=== PATIENT | male | born 1955 | race Caucasian/White ===

== ENCOUNTER 2017-07-19 06:41 | Observation (INO) | payer OTHER ==
[~2017-07-19] VITALS: Ht 186.7 cm; Wt 131.1 kg
[~2017-07-19 06:41] MED LIST: ABILIFY10 MG PO; ABILIFY20 MG PO; ALPRAZOLAM0.25 MG PO; AMARYL1 MG PO; AMARYL2 MG PO; AMLODIPINE BESYL5 MG PO; ASCORBIC ACID500 M1; ASPIR 8181 M1 PO; ASPIR-TRIN325 M1 PO; ATIVAN0.25 MG PO; Aspirin Ec PO; B COMPLEX #11 EACH PO; BENZTROPINE ME0.5 MG PO; BENZTROPINE MESY1 MG PO; CALCIUM 600 +1 EA12 PO; CALCIUM 600 +1 EA13 PO; CALTRATE 6001 TABLE1 PO; CARDIZEM CD240 MG PO; CLEOCIN300 MG PO; CLINDAMYCIN HC150 MG PO; COATED ASPIRIN325 MG PO; COGENTIN0.5 MG PO; CYANOCOBALAM1000 MCG PO; DAILY VITE1 EAC1 PO; DEPAKOTE ER500 MG PO; DEPAKOTE500 MG PO; DESYREL100 MG; DESYREL100 MG PO; DIGOX250 MCG PO; DIGOXIN250 MCG PO; DILTIAZEM PO; DIVALPROEX SOD500 MG PO; ESKALITH300 M1 PO; FLAGYL500 MG PO; GLIMEPIRIDE2 MG; GLIMEPIRIDE2 MG PO; GLYBURIDE5 MG PO; HALDOL1 MG PO; HALDOL5 MG PO; IBUPROFEN600 MG PO; KlonoPIN PO; LANOXIN,DIGIT0.25 MG PO; LEVAQUIN750 MG PO; LEVEMIR FL100 UNIT/1 SC; LEVEMIR100 UNIT/2 SC; LIPITOR10 MG PO; LISINOPRIL2.5 MG PO; LISINOPRIL40 MG PO; LISINOPRIL5 MG PO; LITHIUM CARBON300 M1 PO; LOPRESSOR25 MG PO; Lopressor PO; METFORMIN HCL500 MG PO; METOPROLOL TART25 MG PO; METOPROLOL TART50 MG PO; MULTIVITAMIN1 EAC2 PO; NAPROSYN500 MG PO; NOVOLOG 10100 UNITS/ SC; NOVOLOG PE100 UNITS/ SC; NOVOLOG100 UNIT/1 SC; OMEGA-31000 M1 PO; PREDNISONE20 MG PO; PROTONIX40 MG PO; Percocet 5/325,Endoc PO; REGLAN10 MG PO; RISPERDAL25 MG/2 ML IM; RISPERIDONE2 MG PO; SUPER B COM1 CAPSULE PO; SUPER B COMPLE1 EAC2 PO; SUPER B COMPLE1 EACH PO; SUPER B MAXI C0.4 MG PO; SUPER B-50 COM1 EACH PO; THERAGRAN1 TABLET PO; THIAMINE,VITAM100 MG PO; TRADJENTA5 MG PO; TRAZODONE HCL100 MG PO; Tylenol Regular Stre PO; VALIUM5 MG PO; VICODIN,LORT1 TABLET PO; VITAMIN B12-FO1 EACH; XARELTO PO; XARELTO10 MG PO; XARELTO20 MG PO; Xarelto PO; ZESTRIL20 MG PO; ZESTRIL40 MG PO; Zestril,Prinivil PO; predniSONE PO
[2017-07-19 08:18] LABS: POINT-OF-CARE METER ID UU14107333
[2017-07-19 09:50] LABS: POINT-OF-CARE METER ID UU14174212
[2017-07-19 11:06] LABS: EOSINOPHIL (%) 0.1 % (0-5); HEMATOCRIT 38.6 % (38.0-50.0); IMMATURE GRANULOCYTE (%) 0.9 % (0.0-0.7); IMMATURE GRANULOCYTE COUNT 0.1 K/uL; INSTRUMENT ABS NEUTROPHIL CT 5.8 K/uL; LYMPHOCYTE COUNT 0.8 K/uL (1.0-2.8); MCH 32.1 PG (29.0-34.0); MCV 91.7 FL (86-99); MEAN PLAT.VOLUME 10.5 uM^3 (9.0-12.4); MONOCYTE (%) 9.6 % (3-12); MONOCYTE COUNT 0.7 K/uL (0-0.8); NEUTROPHIL (%) 78.6 % (45-76); NEUTROPHIL COUNT 5.8 K/uL (1.8-6.4); PLATELET COUNT 129 K/uL (156-360); RED BLOOD COUNT 4.21 M/uL (4.00-5.50); WHITE BLOOD COUNT 7.4 K/uL (4.1-10.2)
[2017-07-19 11:17] LABS: CHLORIDE 97 mEq/L (99-109); POTASSIUM 3.9 mEq/L (3.7-5.4); SODIUM 139 mEq/L (136-147)
[2017-07-19 11:20] LABS: GLUCOSE 213 mg/dL (70-99)
[2017-07-19 11:21] LABS: ANION GAP 22 MEQ/L (2-14); TOTAL BILIRUBIN 1.3 mg/dL (0.0-1.0)
[2017-07-19 11:23] LABS: ALKALINE PHOSPHATASE 78 IU/L (3-129); GFR ESTIMATE (CALCULATED) > 59 mL/min/
[2017-07-19 11:24] LABS: INTER. NORMALIZED RATIO 1.2; PTT 27.8 SEC (25-37); UREA NITROGEN (BUN) 12 mg/dL (9-23)
[2017-07-19 11:25] LABS: DIRECT BILIRUBIN 0.6 mg/dL (0.0-0.3)
[2017-07-19 11:27] LABS: LIPASE 43 U/L (1.0-51.0); TROP-I INTERPRETATION NEGATIVE; TROPONIN-I 0.01 ng/mL (0.0-0.30)
[2017-07-19 15:04] LABS: ADD MIUA? YES; BILIRUBIN NEGATIVE; BLOOD NEGATIVE; COLOR AMBER ((YELLOW)); GLUCOSE (STRIP) >=500; KETONES 20; LEUKOCYTES NEGATIVE; NITRITE NEGATIVE; PROTEIN (STRIP) 30; SPECIFIC GRAVITY 1.021 (1.000-1.030); UROBILINOGEN 0.2 MG/DL (0.2-1.0)
[2017-07-19 15:10] LABS: BACTERIA NONE SEEN /HPF; EPITHELIAL CELLS RARE /HPF; MUCUS TRACE /LPF; RED BLOOD CELLS 0-5 /HPF (0-5); UCUL ADDED? YES
[2017-07-19 15:12] LABS: SERUM ETHYL ALCOHOL 12 mg/dL
[2017-07-19] MEDS ORDERED: LO-DOSE ASPIRIN81 M2 PO (16:18)
[2017-07-19 18:16] LABS: TROP-I INTERPRETATION NEGATIVE; TROPONIN-I 0.01 ng/mL (0.0-0.30)
[2017-07-19 18:17] VITALS: BP 129/70
[2017-07-19 19:50] VITALS: BP 122/72
[2017-07-20] VITALS (7 sets, daily range): BP systolic 82–139; BP diastolic 26–73
[2017-07-20 00:23] LABS: C DIFF TOXIN NEGATIVE (NEGATIVE)
[2017-07-20 00:24] LABS: PROBE CHECK PASS; SPECIMEN PROCESSING CONTROL PASS
[2017-07-20 01:16] LABS: TROP-I INTERPRETATION NEGATIVE; TROPONIN-I 0.01 ng/mL (0.0-0.30)
[2017-07-20 07:51] LABS: POINT-OF-CARE METER ID UU14188625
[2017-07-20 10:31] LABS: ANION GAP 9 MEQ/L (2-14); CHLORIDE 102 MEQ/L (99-109); MAGNESIUM 1.6 mg/dl (1.3-2.7); POTASSIUM 3.6 MEQ/L (3.7-5.4); SAMPLE HEMOLYSIS CHECK 0; SAMPLE ICTERIC CHECK 0; SAMPLE LIPEMIA CHECK 0; SODIUM 139 MEQ/L (136-147)
[2017-07-20 10:36] LABS: GFR ESTIMATE (CALCULATED) > 59 mL/min/; GLUCOSE 136 mg/dL (70-99)
[2017-07-20 10:46] LABS: UREA NITROGEN (BUN) 22 mg/dL (9-23)
[2017-07-21 03:43] VITALS: BP 109/64
[2017-07-21 07:32] LABS: ANION GAP 8 MEQ/L (2-14); CHLORIDE 102 MEQ/L (99-109); GFR ESTIMATE (CALCULATED) > 59 mL/min/; POTASSIUM 4.1 MEQ/L (3.7-5.4); SAMPLE HEMOLYSIS CHECK 0; SAMPLE ICTERIC CHECK 0; SAMPLE LIPEMIA CHECK 0; SODIUM 137 MEQ/L (136-147); UREA NITROGEN (BUN) 21 mg/dL (9-23)
[2017-07-21 07:33] VITALS: BP 110/74
[2017-07-21 07:33] LABS: GLUCOSE 77 mg/dL (70-99)
[2017-07-21 11:45] VITALS: BP 132/75
[2017-07-21 12:12] LABS: POINT-OF-CARE METER ID UU14188625
== END 2017-07-21 15:09 | disposition home or self-care (01) ==
LOC: EME 06:41 → AMB 06:41 → EDSTATUS 08:00 → 5SOUTH 15:46 → EDOF 15:46 → ENRESERV 15:48 → 5SOUTH 17:55
PROVIDERS: Emergency Medicine; Internal Medicine; Nurse Practitioner Adult Health
DX: F10.239 Alcohol dependence with withdrawal, unspecified (principal); E87.6 Hypokalemia; I48.0 Paroxysmal atrial fibrillation; E86.0 Dehydration; Z79.01 Long term (current) use of anticoagulants; E11.9 Type 2 diabetes mellitus without complications; I10 Essential (primary) hypertension; E78.5 Hyperlipidemia, unspecified; E83.42 Hypomagnesemia; I25.10 Atherosclerotic heart disease of native coronary artery without angina pectoris; F31.9 Bipolar disorder, unspecified; Z79.4 Long term (current) use of insulin; R19.7 Diarrhea, unspecified; K76.0 Fatty (change of) liver, not elsewhere classified; Z90.49 Acquired absence of other specified parts of digestive tract; Z79.82 Long term (current) use of aspirin; Z83.3 Family history of diabetes mellitus
CPT/HCPCS: 74176; 80048; 80076; 81003; 82948; 83690; 83735; 83880; 84100; 84443; 84484; 85025; 85610; 85730; 87086; 87493; 87506; 93005; 93306; 99281; 99285; G0378; G0480; J1200; J1815; J2060; J2405; J2765; J3475; J7030; J7120

== ENCOUNTER 2017-07-27 14:02 | Observation (INO) | payer OTHER ==
[~2017-07-27] VITALS: Ht 185.4 cm; Wt 135.5 kg
[~2017-07-27 14:02] MED LIST changes: +LO-DOSE ASPIRIN81 M2 PO
[2017-07-27 14:35] LABS: INTER. NORMALIZED RATIO 1.1; PROTHROMBIN TIME 11.8 SEC (10.2-12.9)
[2017-07-27 14:37] LABS: PTT 28.1 SEC (25-37)
[2017-07-27 14:38] LABS: CHLORIDE 99 mEq/L (99-109); POTASSIUM 3.9 mEq/L (3.7-5.4); SODIUM 141 mEq/L (136-147)
[2017-07-27 14:39] LABS: GLUCOSE 234 mg/dL (70-99)
[2017-07-27 14:41] LABS: ANION GAP 22 MEQ/L (2-14)
[2017-07-27 14:43] LABS: GFR ESTIMATE (CALCULATED) > 59 mL/min/
[2017-07-27 14:44] LABS: UREA NITROGEN (BUN) 12 mg/dL (9-23)
[2017-07-27 14:50] LABS: TROP-I INTERPRETATION NEGATIVE; TROPONIN-I 0.02 ng/mL (0.0-0.30)
[2017-07-27 14:54] LABS: BASOPHIL COUNT 0.1 K/uL (0-0.1); EOSINOPHIL (%) 3.2 % (0-5); EOSINOPHIL COUNT 0.2 K/uL (0-0.3); HEMATOCRIT 39.7 % (38.0-50.0); IMMATURE GRANULOCYTE (%) 1.3 % (0.0-0.7); IMMATURE GRANULOCYTE COUNT 0.1 K/uL; INSTRUMENT ABS NEUTROPHIL CT 2.1 K/uL; LYMPHOCYTE COUNT 1.6 K/uL (1.0-2.8); MCH 32.5 PG (29.0-34.0); MCHC 34.5 G/DL (30.0-36.0); MCV 94.1 FL (86-99); MEAN PLAT.VOLUME 10.3 uM^3 (9.0-12.4); MONOCYTE (%) 14.4 % (3-12); MONOCYTE COUNT 0.7 K/uL (0-0.8); NEUTROPHIL (%) 45.3 % (45-76); NEUTROPHIL COUNT 2.1 K/uL (1.8-6.4); PLATELET COUNT 178 K/uL (156-360); RBC DIS.WIDTH-CV 13.2 % (11.8-14.6); RBC DIS.WIDTH-SD 45.6 % (39-53); RED BLOOD COUNT 4.22 M/uL (4.00-5.50); WHITE BLOOD COUNT 4.7 K/uL (4.1-10.2)
[2017-07-27] MEDS ORDERED: NOVOLOG 10100 UNITS/ SC ×3 (16:26→16:27)
[2017-07-27] MEDS ORDERED: LEVEMIR100 UNIT/2 SC (16:28)
[2017-07-27 17:33] LABS: MAGNESIUM 1.2 mg/dL (1.3-2.7)
[2017-07-27 18:07] VITALS: BP 156/88
[2017-07-27 20:50] VITALS: BP 131/82
[2017-07-27 22:06] LABS: TROP-I INTERPRETATION NEGATIVE; TROPONIN-I 0.02 ng/mL (0.0-0.30)
[2017-07-27 23:35] VITALS: BP 122/66
[2017-07-28 04:15] VITALS: BP 143/86
[2017-07-28 05:17] LABS: HEMATOCRIT 37.3 % (38.0-50.0); MCH 33.6 PG (29.0-34.0); MCHC 35.1 G/DL (30.0-36.0); MCV 95.6 FL (86-99); MEAN PLAT.VOLUME 10.2 uM^3 (9.0-12.4); PLATELET COUNT 152 K/uL (156-360); RBC DIS.WIDTH-CV 13.3 % (11.8-14.6); RBC DIS.WIDTH-SD 46.9 % (39-53); WHITE BLOOD COUNT 5.3 K/uL (4.1-10.2)
[2017-07-28 05:37] LABS: ALKALINE PHOSPHATASE 60 IU/L (3-129); ANION GAP 11 MEQ/L (2-14); CHLORIDE 101 MEQ/L (99-109); GFR ESTIMATE (CALCULATED) > 59 mL/min/; GLUCOSE 132 mg/dL (70-99); MAGNESIUM 1.8 mg/dl (1.3-2.7); POTASSIUM 4.1 MEQ/L (3.7-5.4); SAMPLE HEMOLYSIS CHECK 0; SAMPLE ICTERIC CHECK 0; SAMPLE LIPEMIA CHECK 0; SODIUM 141 MEQ/L (136-147); TOTAL BILIRUBIN 1.2 MG/DL (0.0-1.0); UREA NITROGEN (BUN) 11 mg/dL (9-23)
[2017-07-28 05:42] LABS: TROP-I INTERPRETATION NEGATIVE; TROPONIN-I 0.03 ng/mL (0.0-0.30)
[2017-07-28 08:33] VITALS: BP 144/78
[2017-07-28 11:36] VITALS: BP 125/85; BP 130/84; BP 135/91
[2017-07-28 12:02] VITALS: BP 130/84
[2017-07-28 16:15] VITALS: BP 133/87
[2017-07-28 20:00] VITALS: BP 116/81
[2017-07-29 00:12] VITALS: BP 104/59
[2017-07-29 03:58] VITALS: BP 99/57
[2017-07-29 07:43] LABS: POINT-OF-CARE METER ID UU13113781
[2017-07-29 07:45] VITALS: BP 128/58
[2017-07-29] MEDS ORDERED: DILTIAZEM 24HR180 MG PO (09:22)
[2017-07-29] MEDS ORDERED: MAG-OXIDE400 MG PO (09:22)
[2017-07-29] MEDS ORDERED: LOPRESSOR50 MG PO (09:22)
[2017-07-29 11:16] LABS: POINT-OF-CARE METER ID UU13113781
[2017-07-29 13:03] VITALS: BP 111/77
== END 2017-07-29 13:01 | disposition home or self-care (01) ==
LOC: EME 14:02 → EDOF 16:03 → 4EAST 16:03 → EDOF 16:03 → ENRESERV 16:05 → 4EAST 17:27 → ENPENDDIS 07-29 → 4EAST 07-29 13:01
PROVIDERS: Emergency Medicine; Hospitalist
DX: I48.0 Paroxysmal atrial fibrillation (principal); R10.31 Right lower quadrant pain; R19.7 Diarrhea, unspecified; E83.42 Hypomagnesemia; R07.9 Chest pain, unspecified; I10 Essential (primary) hypertension; E11.65 Type 2 diabetes mellitus with hyperglycemia; F31.9 Bipolar disorder, unspecified; E78.5 Hyperlipidemia, unspecified; F10.10 Alcohol abuse, uncomplicated; I25.10 Atherosclerotic heart disease of native coronary artery without angina pectoris; R42 Dizziness and giddiness; Z79.01 Long term (current) use of anticoagulants; Z79.82 Long term (current) use of aspirin; Z79.4 Long term (current) use of insulin; E66.9 Obesity, unspecified; Z68.39 Body mass index [BMI] 39.0-39.9, adult; Z90.49 Acquired absence of other specified parts of digestive tract
CPT/HCPCS: 71010; 74177; 80048; 80053; 82948; 83735; 84484; 85025; 85027; 85610; 85730; 93005; 99281; 99285; G0378; J1160; J1815; J3411; J3475; J7030; J7050

== ENCOUNTER → 2017-11-19 | Outpatient (CLI) | payer OTHER ==
[~2017-11-19] VITALS: Ht 188 cm; Wt 136.0 kg
[~2017-11-19] MED LIST changes: +DILTIAZEM 24HR180 MG PO; +LO-DOSE ASPIRIN81 M1 PO; +LOPRESSOR50 MG PO; +MAG-OXIDE400 MG PO
== END | disposition home or self-care (01) ==
LOC: AMB 07:17
PROVIDERS: Internal Medicine
DX: Z12.11 Encounter for screening for malignant neoplasm of colon (principal); D12.3 Benign neoplasm of transverse colon; K62.1 Rectal polyp; K57.30 Diverticulosis of large intestine without perforation or abscess without bleeding; E11.9 Type 2 diabetes mellitus without complications; I10 Essential (primary) hypertension; I25.10 Atherosclerotic heart disease of native coronary artery without angina pectoris; I48.0 Paroxysmal atrial fibrillation; E78.2 Mixed hyperlipidemia; E66.9 Obesity, unspecified; Z68.38 Body mass index [BMI] 38.0-38.9, adult; Z79.01 Long term (current) use of anticoagulants; Z79.4 Long term (current) use of insulin
CPT/HCPCS: 80048; 82948; 88305

== ENCOUNTER 2017-12-07 10:12 | Inpatient (IN) | payer OTHER ==
[~2017-12-07] VITALS: Ht 188 cm; Wt 139.7 kg
[2017-12-07 11:16] LABS: HEMOGLOBIN 14.2 G/DL (12.5-16.6); MCH 31.2 PG (29.0-34.0); MCHC 34.6 G/DL (30.0-36.0); MCV 90.1 FL (86-99); PLATELET COUNT 182 K/uL (156-360); RBC DIS.WIDTH-CV 12.8 % (11.8-14.6); RED BLOOD COUNT 4.55 M/uL (4.00-5.50); WHITE BLOOD COUNT 9.9 K/uL (4.1-10.2)
[2017-12-07 11:26] LABS: CHLORIDE 105 mEq/L (99-109); POTASSIUM 4.5 mEq/L (3.7-5.4); SODIUM 140 mEq/L (136-147)
[2017-12-07 11:28] LABS: GLUCOSE 188 mg/dL (70-99)
[2017-12-07 11:31] LABS: SERUM ETHYL ALCOHOL < 10 mg/dL
[2017-12-07 11:32] LABS: CREATININE 1.4 mg/dL (0.6-1.3); GFR ESTIMATE (CALCULATED) 55 mL/min/ (58.99-99999)
[2017-12-07 11:33] LABS: UREA NITROGEN (BUN) 27 mg/dL (9-23)
[2017-12-07] MEDS ORDERED: CARDIZEM CD,CA180 MG PO (14:27)
[2017-12-07] MEDS ORDERED: HUMALOG100 UNIT/1 SC ×4 (14:28→14:29)
[2017-12-07] MEDS ORDERED: VITAMIN E400 UNIT PO (14:31)
[2017-12-07 15:39] LABS: AMPHETAMINE NEGATIVE (500 ng/mL); COCAINE NEGATIVE (150 ng/mL); METHAMPHETAMINE NEGATIVE (500 ng/mL); OPIATES (MORPHINE) NEGATIVE (100 ng/mL); PHENCYCLIDINE NEGATIVE (25 ng/mL); THC CANNABINOIDS NEGATIVE (50 ng/mL)
[2017-12-07 15:40] LABS: BARBITURATES NEGATIVE (200 ng/mL); BENZODIAZEPINES PRESUMPTIVE POSITIVE (150 ng/mL); BUPRENORPHINE NEGATIVE (10 ng/mL); METHADONE NEGATIVE (200 ng/mL); OXYCODONE NEGATIVE (100 ng/mL); PROPOXYPHENE NEGATIVE (300 ng/mL); TRICYCLIC ANTIDEPRESSANTS NEGATIVE (300 ng/mL)
[2017-12-07 16:11] LABS: BENZODIAZEPINES, URINE SCREEN Negative (200 ng/mL)
[2017-12-07 17:01] VITALS: BP 100/62
[2017-12-07 17:04] VITALS: BP 100/62
[2017-12-08 07:27] VITALS: BP 115/56
[2017-12-08 11:20] LABS: HEMOGLOBIN A1c (GLYCOHEMOGLOB) 7.8 % (Below 5.7)
[2017-12-08 15:39] VITALS: BP 120/68
[2017-12-09 07:56] VITALS: BP 105/55
[2017-12-09] MEDS ORDERED: ARIPIPRAZOLE15 MG PO (10:31)
== END 2017-12-09 14:20 | disposition home or self-care (01) | DRG 881 ==
LOC: EME 10:12 → EDOF 14:54 → 1WEST 14:54 → ENRESERV 16:56 → 1WEST 16:57
PROVIDERS: Emergency Medicine Emergency Medical Services; Psychiatry & Neurology Psychiatry
DX: F43.21 Adjustment disorder with depressed mood (principal); R45.851 Suicidal ideations; R44.0 Auditory hallucinations; I48.91 Unspecified atrial fibrillation; I10 Essential (primary) hypertension; E11.9 Type 2 diabetes mellitus without complications; Z86.73 Personal history of transient ischemic attack (TIA), and cerebral infarction without residual deficits; E66.9 Obesity, unspecified; Z68.39 Body mass index [BMI] 39.0-39.9, adult
CPT/HCPCS: 80048; 80164; 82948; 83036; 84999; 85027; 90839; 99281; 99284; G0480; J1630; J1815

== ENCOUNTER 2018-02-11 13:24 | Emergency (ER) | payer OTHER ==
[~2018-02-11] VITALS: Ht 188 cm; Wt 136.3 kg
[~2018-02-11 13:24] MED LIST changes: +ARIPIPRAZOLE15 MG PO; +CARDIZEM CD,CA180 MG PO; +HUMALOG100 UNIT/1 SC; +VITAMIN E400 UNIT PO
[2018-02-11 16:30] VITALS: BP 110/70
== END 2018-02-11 16:30 | disposition home or self-care (01) ==
LOC: EME 13:24
PROVIDERS: Physician Assistant Medical
DX: S70.02XA Contusion of left hip, initial encounter (principal); W07.XXXA Fall from chair, initial encounter; E11.649 Type 2 diabetes mellitus with hypoglycemia without coma; Z79.4 Long term (current) use of insulin; I48.91 Unspecified atrial fibrillation; Z79.01 Long term (current) use of anticoagulants; I10 Essential (primary) hypertension; F31.9 Bipolar disorder, unspecified
CPT/HCPCS: 73502; 82948; 99281; 99283

== ENCOUNTER 2018-03-26 01:28 | Observation (INO) | payer OTHER ==
[~2018-03-26] VITALS: Ht 188 cm; Wt 140.0 kg
[2018-03-26 01:52] LABS: HEMATOCRIT 39.2 % (38.0-50.0); HEMOGLOBIN 13.4 G/DL (12.5-16.6); MCH 31.9 PG (29.0-34.0); MCHC 34.2 G/DL (30.0-36.0); MCV 93.3 FL (86-99); PLATELET COUNT 164 K/uL (156-360); RBC DIS.WIDTH-CV 12.9 % (11.8-14.6); WHITE BLOOD COUNT 10.1 K/uL (4.1-10.2)
[2018-03-26 01:58] LABS: INTER. NORMALIZED RATIO 1.2
[2018-03-26 02:01] LABS: PTT 34.5 SEC (25-37)
[2018-03-26 02:02] LABS: CHLORIDE 105 mEq/L (99-109); POTASSIUM 4.6 mEq/L (3.7-5.4); SODIUM 138 mEq/L (136-147)
[2018-03-26 02:04] LABS: GLUCOSE 228 mg/dL (70-99)
[2018-03-26 02:08] LABS: CREATININE 1.3 mg/dL (0.6-1.3); GFR ESTIMATE (CALCULATED) > 59 mL/min/ (58.99-99999)
[2018-03-26 02:09] LABS: UREA NITROGEN (BUN) 28 mg/dL (9-23)
[2018-03-26 02:35] LABS: TROP-I INTERPRETATION NEGATIVE; TROPONIN-I < 0.01 ng/mL (0.0-0.30)
[2018-03-26 07:50] VITALS: BP 119/75
[2018-03-26] MEDS ORDERED: ABILIFY10 MG PO (07:51)
[2018-03-26 09:19] LABS: TROP-I INTERPRETATION NEGATIVE; TROPONIN-I < 0.01 ng/mL (0.0-0.30)
[2018-03-26 11:30] VITALS: BP 138/68
[2018-03-26 15:07] LABS: TROP-I INTERPRETATION NEGATIVE; TROPONIN-I < 0.01 ng/mL (0.0-0.30)
== END 2018-03-26 16:02 | disposition home or self-care (01) ==
LOC: EME → EDBD 01:28 → EME 01:28 → EDOF 03:39 → ENRESERV 03:45 → 4SOUTH 07:52
PROVIDERS: Emergency Medicine; Hospitalist
DX: I25.119 Atherosclerotic heart disease of native coronary artery with unspecified angina pectoris (principal); E11.65 Type 2 diabetes mellitus with hyperglycemia; E11.628 Type 2 diabetes mellitus with other skin complications; I10 Essential (primary) hypertension; E66.01 Morbid (severe) obesity due to excess calories; Z68.39 Body mass index [BMI] 39.0-39.9, adult; I48.0 Paroxysmal atrial fibrillation; F31.81 Bipolar II disorder; Z79.01 Long term (current) use of anticoagulants; F10.11 Alcohol abuse, in remission; Z90.49 Acquired absence of other specified parts of digestive tract; E78.5 Hyperlipidemia, unspecified
CPT/HCPCS: 71045; 80048; 82948; 84484; 85027; 85610; 85730; 93005; G0378

== ENCOUNTER 2018-03-31 05:04 | Emergency (ER) | payer OTHER ==
[~2018-03-31] VITALS: Ht 188 cm; Wt 139.1 kg
[2018-03-31 06:08] LABS: ALBUMIN 3.7 g/dL (3.2-4.8); CHLORIDE 106 mEq/L (99-109); HEMATOCRIT 40.1 % (38.0-50.0); MCH 31.7 PG (29.0-34.0); MCHC 34.9 G/DL (30.0-36.0); MCV 90.7 FL (86-99); POTASSIUM 4.4 mEq/L (3.7-5.4); RBC DIS.WIDTH-CV 12.8 % (11.8-14.6); RBC DIS.WIDTH-SD 41.8 % (39-53); RED BLOOD COUNT 4.42 M/uL (4.00-5.50); SODIUM 137 mEq/L (136-147); WHITE BLOOD COUNT 5.9 K/uL (4.1-10.2)
[2018-03-31 06:11] LABS: GLUCOSE 317 mg/dL (70-99); TOTAL PROTEIN 6.1 g/dL (6.4-8.3)
[2018-03-31 06:12] LABS: TOTAL BILIRUBIN 0.6 mg/dL (0.0-1.0)
[2018-03-31 06:14] LABS: ALKALINE PHOSPHATASE 89 IU/L (3-129); GFR ESTIMATE (CALCULATED) > 59 mL/min/ (58.99-99999)
[2018-03-31 06:15] LABS: UREA NITROGEN (BUN) 18 mg/dL (9-23)
[2018-03-31 06:16] LABS: AST (GOT) 12 IU/L (2-34)
[2018-03-31 06:17] LABS: ALT (GPT) 7 IU/L (3-49)
[2018-03-31 06:18] LABS: LIPASE 9 U/L (1.0-51.0)
[2018-03-31 06:24] LABS: TROP-I INTERPRETATION NEGATIVE; TROPONIN-I < 0.01 ng/mL (0.0-0.30)
[2018-03-31 07:21] LABS: PLAT.SUFFICIENCY DECREASED
[2018-03-31 07:22] LABS: PLATELET COUNT 113 K/uL (156-360)
[2018-03-31 09:11] LABS: TROP-I INTERPRETATION NEGATIVE; TROPONIN-I < 0.01 ng/mL (0.0-0.30)
[2018-03-31 09:46] VITALS: BP 123/93
== END 2018-03-31 09:47 | disposition home or self-care (01) ==
LOC: EME → EDBD 05:04 → EME 09:47
PROVIDERS: Emergency Medicine
DX: R07.9 Chest pain, unspecified (principal); E11.65 Type 2 diabetes mellitus with hyperglycemia; I48.91 Unspecified atrial fibrillation; I25.10 Atherosclerotic heart disease of native coronary artery without angina pectoris; I10 Essential (primary) hypertension; F32.9 Major depressive disorder, single episode, unspecified; F31.9 Bipolar disorder, unspecified; Z86.73 Personal history of transient ischemic attack (TIA), and cerebral infarction without residual deficits; Z90.49 Acquired absence of other specified parts of digestive tract; Z79.4 Long term (current) use of insulin; Z79.82 Long term (current) use of aspirin
CPT/HCPCS: 71045; 80053; 83690; 84484; 85027; 93005; 99281; 99285